=== PATIENT | female | born 1935 | race Caucasian/White ===

== ENCOUNTER 2024-08-13 10:56 | Emergency (ER) | payer OTHER ==
[~2024-08-13] VITALS: Ht 152.4 cm
[2024-08-13] MEDS ORDERED: VASOTEC2.5 MG PO (11:02)
[2024-08-13] MEDS ORDERED: LEVOTHYROXINE25 MCG PO (11:02)
[2024-08-13] MEDS ORDERED: SIMVASTATIN5 MG PO (11:03)
[2024-08-13] MEDS ORDERED: LIDOCAINE HCL 1%/EPINEPHRINE 20ML VIAL IJ ONE (11:30)
[2024-08-13] MEDS ORDERED: TETANUS & DIPHTHERIA TOX,ADULT 0.5 ML VIAL IM ONE (11:30)
== END 2024-08-13 12:10 | disposition home or self-care (01) ==
LOC: ER 10:56
DX: S81.012A Laceration without foreign body, left knee, initial encounter (principal); W26.0XXA Contact with knife, initial encounter; Y93.89 Activity, other specified; Y92.89 Other specified places as the place of occurrence of the external cause; Y99.9 Unspecified external cause status; E11.9 Type 2 diabetes mellitus without complications; Z79.84 Long term (current) use of oral hypoglycemic drugs; I10 Essential (primary) hypertension; E03.9 Hypothyroidism, unspecified